=== PATIENT | female | born 1945 | race African-American/Black ===

== ENCOUNTER → 2019-07-06 | Outpatient (CLI) | payer BC ==
[2019-07-06 10:12] LABS: BASOPHILS % 0.6 % (0.0-2.0); EOSINOPHILS % 0.7 % (0.0-5.0); HEMATOCRIT. 34.3 % (36.0-48.0); HEMOGLOBIN. 11.6 g/dL (12.0-16.0); LYMPHOCYTES % 16.8 % (20.0-50.0); MEAN CORPUSCULAR HEMOGLOBIN 33.9 pg (28.0-32.0); MEAN CORPUSCULAR VOLUME 100.1 fL (81.0-99.0); MEAN PLATELET VOLUME 7.1 fl (7.4-10.4); MONOCYTES % 8.6 % (2.0-8.0); NEUTROPHILS % 73.3 % (40.0-76.0); PLATELET 211 x1000/uL (130-400); RED BLOOD CELL COUNT 3.43 mill/uL (4.2-5.4); RED CELL DISTRIBUTION WIDTH 14.2 % (11.6-14.6)
[2019-07-06 10:19] LABS: CHLORIDE 106 mEq/L (98-107)
[2019-07-06 10:26] LABS: C REACTIVE PROTEIN QUANT 7.3 mg/L (0.0-3.0); LDL CHOLESTEROL 77 mg/dL (5-100)
[2019-07-06 10:28] LABS: HDL CHOLESTEROL 121 mg/dL (40-59); T4 FREE 1.02 ng/dL (0.76-1.46)
[2019-07-06 14:24] LABS: RHEUMATOID FACTOR SCREEN POSITIVE (NEGATIVE)
== END | disposition home or self-care (01) ==
LOC: LAB 09:32
PROVIDERS: ATTEND Internal Medicine
DX: R76.0 Raised antibody titer (principal); E78.5 Hyperlipidemia, unspecified; E03.9 Hypothyroidism, unspecified
CPT/HCPCS: 36415; 80061; 83036; 84439; 84443; 85651; 86140; 86200; 86430

== ENCOUNTER → 2019-12-07 | Outpatient (CLI) | payer BC | END | disposition home or self-care (01) | LOC: MAMMO 09:25 | PROVIDERS: ATTEND Obstetrics & Gynecology | DX: Z12.31 Encounter for screening mammogram for malignant neoplasm of breast (principal) | CPT/HCPCS: 77067 ==

== ENCOUNTER → 2020-01-18 | Outpatient (CLI) | payer BC | END | disposition home or self-care (01) | LOC: MAMMO 09:22 | PROVIDERS: ATTEND Obstetrics & Gynecology | DX: R92.8 Other abnormal and inconclusive findings on diagnostic imaging of breast (principal) | CPT/HCPCS: 76642; 77065 ==

== ENCOUNTER → 2020-01-28 | Outpatient (CLI) | payer BC ==
[~2020-01-28] MED LIST: LIDOCAINE HCL/EPINEPHRINE 1%-EPI 1:100,000 20 ML VIAL ONE; SODIUM BICARBONATE 4% (2.4MEQ) 5ML VIAL IV ONE
== END | disposition home or self-care (01) ==
LOC: RAD 08:42
PROVIDERS: ATTEND Obstetrics & Gynecology
DX: R92.8 Other abnormal and inconclusive findings on diagnostic imaging of breast (principal)
CPT/HCPCS: 19083; 88305; A4648; J3490; Z7610

== ENCOUNTER → 2020-05-02 | Outpatient (CLI) | payer BC ==
[2020-05-02 09:13] LABS: BASOPHILS % 0.5 % (0.0-2.0); EOSINOPHILS % 1.4 % (0.0-5.0); HEMATOCRIT. 38.8 % (36.0-48.0); HEMOGLOBIN. 13.1 g/dL (12.0-16.0); LYMPHOCYTES % 18.6 % (20.0-50.0); MEAN CORPUSCULAR HEMOGLOBIN 33.7 pg (28.0-32.0); MEAN CORPUSCULAR VOLUME 99.3 fL (81.0-99.0); MONOCYTES % 7.2 % (2.0-8.0); NEUTROPHILS % 72.3 % (40.0-76.0); PLATELET 260 x1000/uL (130-400); RED CELL DISTRIBUTION WIDTH 13.5 % (11.6-14.6)
[2020-05-02 09:21] LABS: CLARITY URINE CLEAR (CLEAR); COLOR URINE YELLOW (YELLOW); KETONES URINE NEGATIVE (NEGATIVE); LEUKOCYTE ESTERASE URINE NEGATIVE (NEGATIVE); NITRITE URINE NEGATIVE (NEGATIVE); OCCULT BLOOD URINE NEGATIVE (NEGATIVE); PH URINE 5.5 (4.5-8.0); PROTEIN URINE NEGATIVE (NEGATIVE); SPECIFIC GRAVITY URINE 1.017 (1.005-1.030); UROBILINOGEN URINE 0.2 E.U./dL (0.2-1.0)
[2020-05-02 09:27] LABS: CHLORIDE 105 mEq/L (98-107)
[2020-05-02 09:38] LABS: LDL CHOLESTEROL 90 mg/dL (5-100)
[2020-05-02 09:39] LABS: T4 FREE 1.12 ng/dL (0.76-1.46)
[2020-05-02 09:41] LABS: HDL CHOLESTEROL 104 mg/dL (40-59)
== END | disposition home or self-care (01) ==
LOC: LAB 08:37
PROVIDERS: ATTEND Internal Medicine Critical Care Medicine
DX: E03.9 Hypothyroidism, unspecified (principal); I10 Essential (primary) hypertension; E78.5 Hyperlipidemia, unspecified; L30.9 Dermatitis, unspecified; K21.9 Gastro-esophageal reflux disease without esophagitis; J30.9 Allergic rhinitis, unspecified
CPT/HCPCS: 36415; 80053; 80061; 81003; 82306; 83036; 84439; 84443; 85025

== ENCOUNTER → 2020-08-02 | Outpatient (CLI) | payer BC | END | disposition home or self-care (01) | LOC: LAB 09:14 | PROVIDERS: ATTEND Surgery | DX: Z20.828 Contact with and (suspected) exposure to other viral communicable diseases (principal) | CPT/HCPCS: 87635; C9803 ==

== ENCOUNTER → 2020-08-04 | Outpatient (CLI) | payer BC | END | disposition home or self-care (01) | LOC: RAD 08:53 | PROVIDERS: ATTEND Surgery | DX: N60.11 Diffuse cystic mastopathy of right breast (principal); R92.8 Other abnormal and inconclusive findings on diagnostic imaging of breast | CPT/HCPCS: 76641; 77065 ==

== ENCOUNTER → 2021-02-12 | Outpatient (CLI) | payer BC ==
[2021-02-12 09:47] LABS: BASOPHILS % 0.4 % (0.0-2.0); HEMATOCRIT. 36.9 % (36.0-48.0); HEMOGLOBIN. 12.3 g/dL (12.0-16.0); LYMPHOCYTES % 15.4 % (20.0-50.0); MEAN CORPUSCULAR HEMOGLOBIN 32.5 pg (28.0-32.0); MEAN CORPUSCULAR VOLUME 97.6 fL (81.0-99.0); MEAN PLATELET VOLUME 7.1 fl (7.4-10.4); MONOCYTES % 8.1 % (2.0-8.0); NEUTROPHILS % 74.1 % (40.0-76.0); PLATELET 214 x1000/uL (130-400); RED BLOOD CELL COUNT 3.78 mill/uL (4.2-5.4); RED CELL DISTRIBUTION WIDTH 13.4 % (11.6-14.6)
[2021-02-12 09:52] LABS: CHLORIDE 110 mEq/L (98-107)
[2021-02-12 10:02] LABS: LDL CHOLESTEROL 73 mg/dL (5-100)
[2021-02-12 10:05] LABS: HDL CHOLESTEROL 106 mg/dL (40-59)
[2021-02-13 08:10] LABS: VITAMIN D 25-OH 37.6 ng/mL (30.0-100.0)
== END | disposition home or self-care (01) ==
LOC: LAB 08:03
PROVIDERS: ATTEND Internal Medicine
DX: I10 Essential (primary) hypertension (principal); E78.5 Hyperlipidemia, unspecified; E05.90 Thyrotoxicosis, unspecified without thyrotoxic crisis or storm; K21.9 Gastro-esophageal reflux disease without esophagitis; N95.1 Menopausal and female climacteric states
CPT/HCPCS: 36415; 80053; 80061; 82306; 83036; 84436; 84443; 85025

== ENCOUNTER → 2021-07-24 | Outpatient (CLI) | payer BC ==
[2021-07-24 09:20] LABS: CHLORIDE 110 mEq/L (98-107)
[2021-07-24 09:22] LABS: BASOPHILS % 0.5 % (0.0-2.0); EOSINOPHILS % 2.2 % (0.0-5.0); HEMATOCRIT. 37.8 % (36.0-48.0); HEMOGLOBIN. 12.8 g/dL (12.0-16.0); LYMPHOCYTES % 13.2 % (20.0-50.0); MEAN CORPUSCULAR HEMOGLOBIN 33.4 pg (28.0-32.0); MEAN CORPUSCULAR VOLUME 98.4 fL (81.0-99.0); MEAN PLATELET VOLUME 7.2 fl (7.4-10.4); MONOCYTES % 9.4 % (2.0-8.0); NEUTROPHILS % 74.7 % (40.0-76.0); PLATELET 237 x1000/uL (130-400); RED BLOOD CELL COUNT 3.84 mill/uL (4.2-5.4); RED CELL DISTRIBUTION WIDTH 13.5 % (11.6-14.6)
[2021-07-24 09:27] LABS: LDL CHOLESTEROL 83 mg/dL (5-100)
[2021-07-24 09:28] LABS: HDL CHOLESTEROL 77 mg/dL (40-59); T4 FREE 0.85 ng/dL (0.76-1.46)
== END | disposition home or self-care (01) ==
LOC: CARD 08:23
PROVIDERS: ATTEND Internal Medicine Critical Care Medicine
DX: I51.7 Cardiomegaly (principal); R94.31 Abnormal electrocardiogram [ECG] [EKG]; E88.81 Metabolic syndrome and other insulin resistance; E78.9 Disorder of lipoprotein metabolism, unspecified; E06.9 Thyroiditis, unspecified
CPT/HCPCS: 36415; 80053; 80061; 82306; 84439; 84443; 84481; 85025; 93306

== ENCOUNTER → 2021-09-17 | Outpatient (CLI) | payer BC | END | disposition home or self-care (01) | LOC: MAMMO 08:50 | PROVIDERS: ATTEND Internal Medicine Critical Care Medicine | DX: Z12.31 Encounter for screening mammogram for malignant neoplasm of breast (principal) | CPT/HCPCS: 77067 ==

== ENCOUNTER → 2022-01-07 | Outpatient (CLI) | payer BC ==
[2022-01-07 12:06] LABS: CHLORIDE 107 mEq/L (98-107)
[2022-01-07 12:16] LABS: T4 FREE 0.71 ng/dL (0.76-1.46)
== END | disposition home or self-care (01) ==
LOC: LAB 11:27
PROVIDERS: ATTEND Internal Medicine Critical Care Medicine
DX: I10 Essential (primary) hypertension (principal); E03.9 Hypothyroidism, unspecified
CPT/HCPCS: 36415; 80053; 84439; 84443; 84479

== ENCOUNTER → 2022-04-19 | Outpatient (CLI) | payer BC ==
[~2022-04-19] MED LIST changes: +BARIUM SULFATE 176 GM SUSP.RECON ONE; +EZ-HD SUSPENSION(BARIUM SULFATE 340GM) PO ONE; -LIDOCAINE HCL/EPINEPHRINE 1%-EPI 1:100,000 20 ML VIAL ONE; -SODIUM BICARBONATE 4% (2.4MEQ) 5ML VIAL IV ONE
[2022-04-19 07:50] LABS: BASOPHILS % 0.5 % (0.0-2.0); EOSINOPHILS % 2.4 % (0.0-5.0); HEMATOCRIT. 38.1 % (36.0-48.0); LYMPHOCYTES % 17.3 % (20.0-50.0); MEAN CORPUSCULAR HEMOGLOBIN 33.5 pg (28.0-32.0); MEAN CORPUSCULAR VOLUME 98.3 fL (81.0-99.0); MEAN PLATELET VOLUME 7.2 fl (7.4-10.4); MONOCYTES % 9.4 % (2.0-8.0); NEUTROPHILS % 70.4 % (40.0-76.0); PLATELET 233 x1000/uL (130-400); RED BLOOD CELL COUNT 3.88 mill/uL (4.2-5.4); RED CELL DISTRIBUTION WIDTH 13.3 % (11.6-14.6)
[2022-04-19 08:08] LABS: CHLORIDE 108 mEq/L (98-107)
[2022-04-19 08:21] LABS: HDL CHOLESTEROL 94 mg/dL (40-59); LDL CHOLESTEROL 71 mg/dL (5-100); T4 FREE 1.06 ng/dL (0.76-1.46)
[2022-04-20 04:09] LABS: VITAMIN D 25-OH 40.4 ng/mL (30.0-100.0)
== END | disposition home or self-care (01) ==
LOC: RAD 07:06
PROVIDERS: ATTEND Internal Medicine Critical Care Medicine
DX: R19.2 Visible peristalsis (principal); R13.10 Dysphagia, unspecified
CPT/HCPCS: 36415; 74246; 80053; 80061; 82306; 84439; 84443; 84479; 85025

== ENCOUNTER → 2022-09-16 | Outpatient (CLI) | payer BC ==
[2022-09-16 10:54] LABS: BASOPHILS % 0.4 % (0.0-2.0); EOSINOPHILS % 1.9 % (0.0-5.0); HEMATOCRIT. 36.6 % (36.0-48.0); HEMOGLOBIN. 12.3 g/dL (12.0-16.0); LYMPHOCYTES % 16.3 % (20.0-50.0); MEAN CORPUSCULAR HEMOGLOBIN 33.3 pg (28.0-32.0); MEAN CORPUSCULAR VOLUME 99.4 fL (81.0-99.0); MEAN PLATELET VOLUME 7.1 fl (7.4-10.4); MONOCYTES % 9.1 % (2.0-8.0); NEUTROPHILS % 72.3 % (40.0-76.0); PLATELET 225 x1000/uL (130-400); RED BLOOD CELL COUNT 3.68 mill/uL (4.2-5.4); RED CELL DISTRIBUTION WIDTH 13.4 % (11.6-14.6)
[2022-09-16 11:01] LABS: CHLORIDE 108 mEq/L (98-107)
[2022-09-16 11:44] LABS: VITAMIN B12 SERUM 481 pg/mL (211-911)
[2022-09-16 12:05] LABS: FOLIC ACID (FOLATE) SERUM > 20.00 ng/mL (>5.38)
== END | disposition home or self-care (01) ==
LOC: LAB 10:18
PROVIDERS: ATTEND Internal Medicine Critical Care Medicine
DX: Z00.01 Encounter for general adult medical examination with abnormal findings (principal)
CPT/HCPCS: 36415; 80053; 82306; 82607; 82746; 85025

== ENCOUNTER → 2022-11-06 | Outpatient (CLI) | payer BC | END | disposition home or self-care (01) | LOC: MAMMO 09:06 | PROVIDERS: ATTEND Internal Medicine Critical Care Medicine | DX: Z12.31 Encounter for screening mammogram for malignant neoplasm of breast (principal) | CPT/HCPCS: 77067 ==

== ENCOUNTER → 2023-07-28 | Outpatient (CLI) | payer BC | END | disposition home or self-care (01) | LOC: RAD 08:57 | PROVIDERS: ATTEND Internal Medicine Critical Care Medicine | DX: S92.812A Other fracture of left foot, initial encounter for closed fracture (principal); X58.XXXA Exposure to other specified factors, initial encounter; Y93.89 Activity, other specified; Y92.89 Other specified places as the place of occurrence of the external cause; Y99.8 Other external cause status | CPT/HCPCS: 73630 ==

== ENCOUNTER → 2023-07-28 | Outpatient (CLI) | payer BC ==
[2023-07-28 10:01] LABS: BASOPHILS % 0.4 % (0.0-2.0); EOSINOPHILS % 2.6 % (0.0-5.0); HEMATOCRIT. 36.5 % (36.0-48.0); HEMOGLOBIN. 12.2 g/dL (12.0-16.0); MEAN CORPUSCULAR HEMOGLOBIN 32.9 pg (28.0-32.0); MEAN CORPUSCULAR HGB CONC 33.3 g/dL (31.0-37.0); MEAN CORPUSCULAR VOLUME 98.7 fL (81.0-99.0); MEAN PLATELET VOLUME 7.4 fl (7.4-10.4); MONOCYTES % 9.6 % (2.0-8.0); NEUTROPHILS % 66.4 % (40.0-76.0); PLATELET 219 x1000/uL (130-400); RED CELL DISTRIBUTION WIDTH 13.7 % (11.6-14.6); WHITE BLOOD COUNT 5.8 x1000/uL (4.5-11.0)
[2023-07-28 10:21] LABS: CHLORIDE 109 mEq/L (98-107); INDEX HEMOLYSI 1 (1-3); INDEX ICTERIC 1 (1-4); INDEX LIPEMIC 1 (1-3); POTASSIUM 3.8 mEq/L (3.5-5.1); SODIUM 137 mEq/L (136-145)
[2023-07-28 10:34] LABS: ALANINE AMINOTRANSFERASE 20 IU/L (13-61); ALBUMIN 3.5 g/dL (3.4-5.0); ASPARTATE AMINOTRANSFERASE 16 IU/L (15-37); BILIRUBIN TOTAL 0.4 mg/dL (0.1-1.0); CARBON DIOXIDE 27 mEq/L (21-32); CHOLESTEROL 170 mg/dL (<200); GLUCOSE 103 mg/dL (70-105); HDL CHOLESTEROL 88 mg/dL (40-59); LDL CHOLESTEROL 64 mg/dL (5-100); T4 FREE 0.86 ng/dL (0.76-1.46); TRIGLYCERIDE 154 mg/dL (0-150); UREA NITROGEN BLOOD 24 mg/dL (7-21)
[2023-07-28 11:00] LABS: CLARITY URINE HAZY (CLEAR); COLOR URINE YELLOW (YELLOW); PROTEIN URINE NEGATIVE (NEGATIVE); SPECIFIC GRAVITY URINE 1.025 (1.005-1.030)
[2023-07-28 11:01] LABS: GLUCOSE URINE NEGATIVE (NEGATIVE); KETONES URINE NEGATIVE (NEGATIVE); LEUKOCYTE ESTERASE URINE NEGATIVE (NEGATIVE); NITRITE URINE NEGATIVE (NEGATIVE); OCCULT BLOOD URINE NEGATIVE (NEGATIVE); UROBILINOGEN URINE 0.2 E.U./dL (0.2-1.0)
== END | disposition home or self-care (01) ==
LOC: LAB 09:11
PROVIDERS: ATTEND Internal Medicine Critical Care Medicine
DX: Z00.01 Encounter for general adult medical examination with abnormal findings (principal)
CPT/HCPCS: 36415; 80053; 80061; 81003; 82306; 84439; 84443; 85025

== ENCOUNTER → 2024-04-05 | Outpatient (CLI) | payer BC ==
[2024-04-05 10:11] LABS: CHLORIDE 105 mEq/L (98-107); POTASSIUM 3.7 mEq/L (3.5-5.1); SODIUM 136 mEq/L (136-145)
[2024-04-05 10:12] LABS: CARBON DIOXIDE 28 mEq/L (21-32)
[2024-04-05 10:16] LABS: CREATININE 0.8 mg/dL (0.6-1.0); GLUCOSE 99 mg/dL (70-105)
[2024-04-05 10:17] LABS: UREA NITROGEN BLOOD 15 mg/dL (9-23)
[2024-04-05 10:19] LABS: ALANINE AMINOTRANSFERASE 10 IU/L (10-49); ASPARTATE AMINOTRANSFERASE 20 IU/L (<34); BILIRUBIN TOTAL 0.6 mg/dL (0.1-1.0); PROTEIN TOTAL 6.3 g/dL (6.0-8.3)
[2024-04-05 10:21] LABS: T4 FREE 1.08 ng/dL (0.89-1.76); THYROID STIMULATING HORMONE 4.78 uIU/mL (0.55-4.78)
[2024-04-05 10:29] LABS: BASOPHILS % 0.4 % (0.0-2.0); EOSINOPHILS % 3.7 % (0.0-5.0); HEMATOCRIT. 35.3 % (36.0-48.0); LYMPHOCYTES % 21.3 % (20.0-50.0); MEAN CORPUSCULAR HEMOGLOBIN 33.3 pg (28.0-32.0); MEAN CORPUSCULAR HGB CONC 33.9 g/dL (31.0-37.0); MEAN CORPUSCULAR VOLUME 98.2 fL (81.0-99.0); MEAN PLATELET VOLUME 7.8 fl (7.4-10.4); MONOCYTES % 8.8 % (2.0-8.0); NEUTROPHILS % 65.8 % (40.0-76.0); PLATELET 222 x1000/uL (130-400); RED CELL DISTRIBUTION WIDTH 13.2 % (11.6-14.6); WHITE BLOOD COUNT 4.9 x1000/uL (4.5-11.0)
[2024-04-05 11:09] LABS: CALCIUM 10.2 mg/dL (8.7-10.4)
[2024-04-05 11:58] LABS: FOLIC ACID (FOLATE) SERUM 13.64 ng/mL (>5.38)
[2024-04-05 11:59] LABS: VITAMIN B12 SERUM 670 pg/mL (211-911)
== END | disposition home or self-care (01) ==
LOC: LAB 09:33
DX: G62.89 Other specified polyneuropathies (principal)
CPT/HCPCS: 36415; 80053; 82607; 82746; 83036; 83090; 83921; 84155; 84165; 84425; 84439; 84443; 85025; 86256

== ENCOUNTER → 2024-05-28 | Outpatient (CLI) | payer BC | END | disposition home or self-care (01) | LOC: MAMMO 09:33 | PROVIDERS: ATTEND Internal Medicine Critical Care Medicine | DX: Z12.31 Encounter for screening mammogram for malignant neoplasm of breast (principal); R92.1 Mammographic calcification found on diagnostic imaging of breast | CPT/HCPCS: 77063; 77067 ==

== ENCOUNTER → 2025-03-15 | Outpatient (CLI) | payer BC ==
[~2025-03-15] MED LIST changes: +ASPI-1497 PO; +ATOR40TA70 PO; -BARIUM SULFATE 176 GM SUSP.RECON ONE; +CHOL200059 PO; +COR12 PO; +DESO60CR TP; +ESTR0.5T2 PO; -EZ-HD SUSPENSION(BARIUM SULFATE 340GM) PO ONE; +FLUT9.9S16 NS; +HYDR-459 PO; +HYDR12.54 PO; +LEVO75TA7 PO; +LOSA100T33 PO; +PREG150C PO; +TRAM50TA3 PO
== END | disposition home or self-care (01) ==
LOC: CARD 12:42
PROVIDERS: ATTEND Internal Medicine
DX: I35.8 Other nonrheumatic aortic valve disorders (principal); I11.9 Hypertensive heart disease without heart failure
CPT/HCPCS: 93306

== ENCOUNTER → 2025-07-01 | Outpatient (CLI) | payer BC | END | disposition home or self-care (01) | LOC: MAMMO 08:56 | PROVIDERS: ATTEND Internal Medicine Critical Care Medicine | DX: Z12.31 Encounter for screening mammogram for malignant neoplasm of breast (principal); N64.89 Other specified disorders of breast; R92.333 Mammographic heterogeneous density, bilateral breasts; R92.1 Mammographic calcification found on diagnostic imaging of breast | CPT/HCPCS: 77063; 77067 ==

== ENCOUNTER → 2025-07-01 | Outpatient (CLI) | payer BC ==
[2025-07-01 10:33] LABS: BASOPHILS % 0.7 % (0.0-2.0); EOSINOPHILS % 2.8 % (0.0-5.0); HEMATOCRIT. 32.3 % (36.0-48.0); HEMOGLOBIN. 10.8 g/dL (12.0-16.0); LYMPHOCYTES % 19.4 % (20.0-50.0); MEAN PLATELET VOLUME 7.6 fl (7.4-10.4); MONOCYTES % 7.7 % (2.0-8.0); NEUTROPHILS % 69.4 % (40.0-76.0); PLATELET 211 x1000/uL (130-400); RED BLOOD CELL COUNT 3.35 mill/uL (4.2-5.4); RED CELL DISTRIBUTION WIDTH 13.2 % (11.6-14.6)
[2025-07-01 10:58] LABS: CREATININE 1.2 mg/dL (0.6-1.0)
[2025-07-01 10:59] LABS: TRIGLYCERIDE 197 mg/dL (0-150); UREA NITROGEN BLOOD 27 mg/dL (9-23)
[2025-07-01 11:00] LABS: ASPARTATE AMINOTRANSFERASE 20 IU/L (<34); LDL CHOLESTEROL 51 mg/dL (5-100)
[2025-07-01 11:01] LABS: BILIRUBIN TOTAL 0.5 mg/dL (0.1-1.0); PROTEIN TOTAL 6.9 g/dL (6.0-8.3)
== END | disposition home or self-care (01) ==
LOC: LAB 09:31
PROVIDERS: ATTEND Internal Medicine
DX: I10 Essential (primary) hypertension (principal); E78.5 Hyperlipidemia, unspecified
CPT/HCPCS: 36415; 80053; 80061; 83036; 85025

== ENCOUNTER → 2025-07-18 | Outpatient (CLI) | payer BC | END | disposition home or self-care (01) | LOC: MAMMO 09:30 | PROVIDERS: ATTEND Internal Medicine Critical Care Medicine | DX: N63.11 Unspecified lump in the right breast, upper outer quadrant (principal); N63.15 Unspecified lump in the right breast, overlapping quadrants; R92.2 Inconclusive mammogram | CPT/HCPCS: 76641; 77062; 77065; G0279 ==

== ENCOUNTER → 2025-07-22 | Outpatient (CLI) | payer BC | END | disposition home or self-care (01) | LOC: MRI 10:19 | DX: S73.192A Other sprain of left hip, initial encounter (principal); M43.16 Spondylolisthesis, lumbar region; M25.552 Pain in left hip; M25.551 Pain in right hip; M54.50 Low back pain, unspecified; X58.XXXA Exposure to other specified factors, initial encounter; Y93.89 Activity, other specified; Y92.89 Other specified places as the place of occurrence of the external cause; Y99.8 Other external cause status | CPT/HCPCS: 72100; 73521; 73721 ==

== ENCOUNTER → 2025-07-22 | Outpatient (CLI) | payer BC ==
[2025-07-22 12:07] LABS: BASOPHILS % 0.8 % (0.0-2.0); EOSINOPHILS % 3.4 % (0.0-5.0); HEMATOCRIT. 34.3 % (36.0-48.0); HEMOGLOBIN. 11.4 g/dL (12.0-16.0); LYMPHOCYTES % 27.3 % (20.0-50.0); MEAN PLATELET VOLUME 7.4 fl (7.4-10.4); MONOCYTES % 7.9 % (2.0-8.0); NEUTROPHILS % 60.6 % (40.0-76.0); PLATELET 256 x1000/uL (130-400); RED BLOOD CELL COUNT 3.55 mill/uL (4.2-5.4); RED CELL DISTRIBUTION WIDTH 13.2 % (11.6-14.6)
[2025-07-22 12:30] LABS: CREATININE 1.1 mg/dL (0.6-1.0); UREA NITROGEN BLOOD 27 mg/dL (9-23)
[2025-07-22 12:32] LABS: ASPARTATE AMINOTRANSFERASE 18 IU/L (<34); BILIRUBIN TOTAL 0.6 mg/dL (0.1-1.0); PROTEIN TOTAL 6.9 g/dL (6.0-8.3)
[2025-07-22 12:58] LABS: INR 1.0
== END | disposition home or self-care (01) ==
LOC: LAB 10:28
PROVIDERS: ATTEND Internal Medicine Critical Care Medicine
DX: I10 Essential (primary) hypertension (principal); D50.9 Iron deficiency anemia, unspecified
CPT/HCPCS: 36415; 80053; 85025

== ENCOUNTER → 2025-08-11 | Day surgery (SDC) | payer BC ==
[~2025-08-11] MED LIST changes: +LIDOCAINE HCL/EPINEPHRINE 1%-EPI 1:100,000 20ML VIAL ONE; +SODIUM BICARBONATE 4.2% 2.5MEQ/5ML VIAL IV ONE
== END | disposition home or self-care (01) ==
LOC: RAD 08:26
PROVIDERS: ATTEND Internal Medicine Critical Care Medicine
DX: N60.41 Mammary duct ectasia of right breast (principal); N63.10 Unspecified lump in the right breast, unspecified quadrant; N60.81 Other benign mammary dysplasias of right breast; R92.8 Other abnormal and inconclusive findings on diagnostic imaging of breast; Z79.82 Long term (current) use of aspirin; Z79.899 Other long term (current) drug therapy; Z91.041 Radiographic dye allergy status; Z91.013 Allergy to seafood; Z88.8 Allergy status to other drugs, medicaments and biological substances
CPT/HCPCS: 19083; 88305; J2004; J3490

== ENCOUNTER → 2025-08-30 | Outpatient (CLI) | payer BC ==
[~2025-08-30] MED LIST changes: -LIDOCAINE HCL/EPINEPHRINE 1%-EPI 1:100,000 20ML VIAL ONE; +PANT40TA51 PO; -SODIUM BICARBONATE 4.2% 2.5MEQ/5ML VIAL IV ONE
[2025-08-30 15:32] LABS: BASOPHILS % 0.5 % (0.0-2.0); EOSINOPHILS % 0.6 % (0.0-5.0); HEMATOCRIT. 34.4 % (36.0-48.0); HEMOGLOBIN. 11.5 g/dL (12.0-16.0); LYMPHOCYTES % 21.3 % (20.0-50.0); MEAN PLATELET VOLUME 7.5 fl (7.4-10.4); MONOCYTES % 9.5 % (2.0-8.0); NEUTROPHILS % 68.1 % (40.0-76.0); PLATELET 225 x1000/uL (130-400); RED BLOOD CELL COUNT 3.55 mill/uL (4.2-5.4); RED CELL DISTRIBUTION WIDTH 13.7 % (11.6-14.6)
[2025-08-30 15:45] LABS: CREATININE 1.4 mg/dL (0.6-1.0); UREA NITROGEN BLOOD 25.0 mg/dL (9-23)
[2025-08-30 15:48] LABS: INR 1.0
== END | disposition home or self-care (01) ==
LOC: RAD 14:29
PROVIDERS: ATTEND Internal Medicine Critical Care Medicine
DX: Z01.818 Encounter for other preprocedural examination (principal); I10 Essential (primary) hypertension; D50.9 Iron deficiency anemia, unspecified
CPT/HCPCS: 36415; 71046; 80048; 85025

== ENCOUNTER → 2025-09-07 | Day surgery (SDC) | payer BC ==
[~2025-09-07] VITALS: Ht 162.6 cm; Wt 69.9 kg
[~2025-09-07] MED LIST changes: +ACETAMINOPHEN 1,000MG/100ML PREMIX IV PRN; +ACETAMINOPHEN 1000MG/100ML 100 ML IV ONE; +BUPIVACAINE HCL/PF 0.5% (5MG/ML) 10ML ONE; +CEFAZOLIN SODIUM 1000MG/VIAL ONE; +ETOMIDATE 2MG/ML 10ML VIAL IV ONE; +FAMOTIDINE 20MG/2ML VIAL IV ONE; +FAMOTIDINE 20MG/2ML VIAL IV PRN; +FENTANYL CITRATE/PF 50MCG/ML 2ML VIAL ONE; +HYDRALAZINE 20MG/ML VIAL IV PRN; +HYDROMORPHONE HCL/PF 1MG/ML INJ IV PRN; +HYDROMORPHONE HCL/PF 2MG/ML INJ ONE; +LABETALOL 5MG/ML 4ML INJ IV PRN; +LACTATED RINGERS 1,000 ML IV SCH; +LIDOCAINE HCL/EPINEPHRINE 1%-EPI 1:100,000 20ML VIAL ONE; +MEPERIDINE HCL/PF 25MG/ML CPJ IV PRN; +MIDAZOLAM HCL 2 MG/2 ML VIAL ONE; +ONDANSETRON HCL 4MG/2ML INJ IV PRN; +ONDANSETRON HCL 4MG/2ML INJ ONE; +OXYC-100 MT; +PROPOFOL 200MG/20ML VIAL IV ONE; +ROCURONIUM BROMIDE 10MG/ML VIAL 5ML IV ONE; +SKIN ADHESIVE 0.7 GM EA TOP ONE
== END | disposition home or self-care (01) ==
LOC: OR 05:06
PROVIDERS: ATTEND Surgery
DX: N63.15 Unspecified lump in the right breast, overlapping quadrants (principal); Z98.890 Other specified postprocedural states; I10 Essential (primary) hypertension; E03.9 Hypothyroidism, unspecified; E78.5 Hyperlipidemia, unspecified; Z79.899 Other long term (current) drug therapy; Z79.82 Long term (current) use of aspirin; Z88.2 Allergy status to sulfonamides; Z91.041 Radiographic dye allergy status; Z91.013 Allergy to seafood; Z88.8 Allergy status to other drugs, medicaments and biological substances
CPT/HCPCS: 19301; 88305; J3010; J0665; J0690; J3490 ×2; J1308; J2004; J2250; J2405; J2704; J1171; J0131